=== PATIENT | female | born 1985 | race Caucasian/White ===

== ENCOUNTER 2016-11-14 14:49 | Emergency (ER) | payer OTHER ==
[~2016-11-14] VITALS: Ht 162.6 cm; Wt 122.7 kg
[~2016-11-14 14:49] MED LIST: EMTR1TAB12 PO; HYDR25TA4 PO; METF500T4 PO; RALT400T PO
[2016-11-14 15:07] VITALS: BP 188/132; PULSE 109; RESP 20; O2SAT 99
[2016-11-14 16:02] LABS: BASOPHILS % (AUTO) 0.1 % (0-3); EOSINOPHILS % (AUTO) 1.1 % (0-5); MONOCYTES % (AUTO) 7.4 % (4-12); Mean Corpuscular Hemoglobin 31.1 pg (27.0-35.0); Mean Corpuscular Volume 87.9 fL (81-100); NEUTROPHILS % (AUTO) 63.8 % (40-74); Platelet Count 280 bil/L (150-400)
[2016-11-14 18:30] VITALS: BP 158/78; PULSE 101; RESP 15; O2SAT 100
--- NOTE | 2016-11-14 18:49 | ED.REPORT ---
HPI-General Illness Date of Service Nov 14, 2016 ED Provider: Dr. Tijerina Pt is a 30 year old female with a history of substance abuse who presents to the ED from crisis respite with concerns for elevated blood pressure. She is requesting a refill of her hydrochlorothiazide medication. Pt reports that she did not get this medication refilled at her last visit to her PCP at [facility]. Pt states that she is having no other complaints. She denies any chest pain, SOB, new headaches, lateralizing weakness, nausea, vomiting or diarrhea. She states that she decided to come in because they said she needed her blood pressure controlled; not having any symptoms at this time. Nursing Notes Stated Complaint: ALCOHOL DETOX Chief Complaint: Substance Abuse Nursing Notes Reviewed: Yes Allergies: Coded Allergies: No Known Allergies (Verified Allergy, Unknown, 11/04/15) Scheduled Emtricitabine/Tenofovir 200-300mg (Truvada 200-300 mg) 1 Each Tablet 1 TABLET PO DAILY Emtricitabine/Tenofovir 200-300mg (Truvada 200-300 mg) 1 Each Tablet 1 TABLET PO DAILY Hydrochlorothiazide (Hydrochlorothiazide) 25 Mg Tablet 25 MG PO DAILY Hydrochlorothiazide (Hydrochlorothiazide) 25 Mg Tablet 25 MG PO DAILY Hydrochlorothiazide (Hydrochlorothiazide) 25 Mg Tablet 25 MG PO DAILY Hydrochlorothiazide (Hydrochlorothiazide) 25 Mg Tablet 25 MG PO DAILY Metformin (Metformin) 500 Mg Tablet 500 MG PO BID Metformin (Metformin) 500 Mg Tablet 500 MG PO BID Raltegravir Potassium (Isentress) 400 Mg Tablet 400 MG PO BID Raltegravir Potassium (Isentress) 400 Mg Tablet 400 MG PO BID General Time Seen by MD: 18:48 Chief Complaint Other (HTN meds refill) Hx Obtained From: Patient Arrived By: Walk-in Sudden in Onset?: No Onset Occurred: Onset unknown Symptom Duration: Since onset Severity: Current: No pain currently Severity: Maximum: No pain Similar Sx Previous: Yes Past Medical History Past Medical History Notes: Seen yesterday in ED for meth abuse - sent to [facility] Past Medical History Depression Substance abuse Reports: Diabetes mellitus, Hypertension Past Surgical History Reports: , Cholecystectomy Smoking History Current Every Day Smoker Social History Alcohol Use: >5 per day Drug Use: IV drugs, Meth, Other Other Social History: Lives with children, Local resident Occupation has a place to stay. no work or school at this time 11/01/2015 Ambulatory Status Independent Review of Systems Full Review of Systems Constitutional: Denies: Chills, Fever, Malaise, Weakness - generalized Respiratory: Denies: Non-productive cough, Shortness of breath, Wheezing Cardiovascular: Denies: Chest pain, Syncope GI: Denies: Constipation, Diarrhea, Nausea, Vomiting Female: Denies: Dysuria, Flank pain, Urinary frequency, Urinary urgency Musculoskeletal: Denies: Back pain, Extremity pain Skin: Denies Diaphoresis Neurologic: Denies: Change LOC, Dizziness, Headache, Syncope, Weakness Complete sys rev & neg: except as marked. Physical Exam Nursing note and vitals reviewed. Constitutional: Well-developed, well-nourished. Not diaphoretic. Head: Normocephalic and atraumatic. Mouth/Throat: Oropharynx is clear and moist. No oropharyngeal exudate. Eyes: EOM are normal. Pupils are equal, round, and reactive to light. Neck: Supple, no tracheal deviation. Cardiovascular: Normal rate, regular rhythm. Equal and intact distal pulses throughout. Pulmonary/Chest: Effort normal and breath sounds normal. No respiratory distress. Abdominal: Soft. No distension. There is no tenderness, rebound, or guarding. Bowel sounds preset. Musculoskeletal: Range of motion grossly intact, moving all extremities. No edema or tenderness appreciated Neurological: AOx3. Grossly nonfocal exam. Strength and sensation intact and equal to bilateral upper and lower extremities. Skin: Warm and dry, no rashes or pallor appreciated. Psychiatric: Appropriate mood and affect. Behavior appears normal. Vital Signs Vital Signs Date Time Temp Pulse Resp B/P Pulse Ox O2 Delivery O2 Flow Rate FiO2 11/14/16 20:49 36.9 84 14 156/78 98 Room Air 11/14/16 18:30 101 15 158/78 100 11/14/16 15:07 36.8 109 20 188/132 99 Initial VS: Reviewed Interpretation & Diagnostics Lab Results Interpretation Result Diagram: 11/14/16 1558 11/14/16 1558 Test 11/14/16 15:58 11/14/16 15:59 White Blood Count 14.1th/mm3 (3.8-10.1) Red Blood Count 4.89mil/mm3 (3.90-5.20) Hemoglobin 15.2g/dL (12.0-15.6) Hematocrit 43.0% (35.0-46.0) Mean Corpuscular Volume 87.9fL (81-100) Mean Corpuscular Hemoglobin 31.1pg (27.0-35.0) Mean Corpuscular Hemoglobin Concent 35.3% (32.0-37.0) Red Cell Distribution Width 13.3% (12.3-15.4) Platelet Count 280bil/L (150-400) Neutrophils (%) (Auto) 63.8% (40-74) Lymphocytes (%) (Auto) 27.4% (14-46) Monocytes (%) (Auto) 7.4% (4-12) Eosinophils (%) (Auto) 1.1% (0-5) Basophils (%) (Auto) 0.1% (0-3) Sodium Level 136mEq/L (134-144) Potassium Level 4.1mEq/L (3.5-5.2) Chloride Level 100mEq/L (97-108) Carbon Dioxide Level 22mmol/L (18-29) Blood Urea Nitrogen 24mg/dL (6-20) Creatinine 0.68mg/dL (0.57-1.00) Estimat Glomerular Filtration Rate 146mL/min (>59) Glucose Level 164mg/dL (60-99) Calcium Level 9.8mg/dL (8.5-10.1) Total Bilirubin 1.1mg/dL (0.0-1.2) Aspartate Amino Transf (AST/SGOT) 23U/L (0-50) Alanine Aminotransferase (ALT/SGPT) 22U/L (0-32) Alkaline Phosphatase 69U/L (25-150) Total Protein 7.3g/dL (6.4-8.4) Albumin 4.2g/dL (3.4-5.0) Hold Johns Top Tube Received (Received) Re-Eval/Medical Decision Med Decision/Clinical Course 30-year-old female history of substance abuse here from crisis respite after they noted that her blood pressure was high and stated that she needed to have this treated. She has no symptoms at this time whatsoever; she does not have a hypertensive urgency or emergency at this time. No complaints right now. Normal neurologic exam. I will give her a refill for her hydrochlorothiazide with instructions to follow-up with her PCP as soon as able. Plan discharge with careful return precautions, PCP follow-up. Source of Hx: Old records Time of Eval: 21:28 Re-Evaluation/Progress Note: Pt is rechecked and informed of her diagnosis and the plan to discharge her at this time. She understands and agrees, all questions are addressed. Counseled Regarding: Diagnosis, Lab results, Need for follow-up, When/why to return to ED Discharge & Departure Primary Impression: Medication refill Additional Impression: Hypertension Hypertension type: essential hypertension Qualified Code: I10 - Essential ( primary) hypertension Disposition: Home Discharge Condition All VS Reviewed: Yes Condition: Stable Patient Instructions: Chronic Hypertension (ED) Additional Instructions: Take your hypertension medication as prescribed, follow up with your primary care provider for continued care and future refills. Return to the emergency department with any chest pain, shortness of breath, or any other new or concerning symptoms. Referrals: [facility] (PCP) Kaity Attestation Portions of this note were transcribed by Mónica Munroe. I, Dr. Tijerina personally performed the history, physical exam and medical decision-making; I reviewed and confirmed the accuracy of the information in the transcribed note. Signed by: Kaity Mata, 11/14/2016 20:30 copies to: [facility] William B MD Nov 14, 2016 18:49 MONET MUNROE Nov 14, 2016 20:26
[2016-11-14] MEDS ORDERED: HYDR25TA4 PO (20:27)
[2016-11-14 20:49] VITALS: BP 156/78; PULSE 84; RESP 14; O2SAT 98
== END 2016-11-14 20:51 | disposition home or self-care (01) ==
LOC: SED 14:49
DX: I10 Essential (primary) hypertension (principal); F17.200 Nicotine dependence, unspecified, uncomplicated; F32.9 Major depressive disorder, single episode, unspecified; E11.9 Type 2 diabetes mellitus without complications; Z79.84 Long term (current) use of oral hypoglycemic drugs

== ENCOUNTER 2017-01-12 18:55 | Emergency (ER) | payer OTHER ==
[2017-01-12 19:00] VITALS: BP 139/92; PULSE 89; RESP 16; O2SAT 98
--- NOTE | 2017-01-12 19:04 | ED.REPORT ---
HPI-General Illness Date of Service Jan 12, 2017 ED Provider: Isai Cervantes MD Patient is a 31 year old female with a history of diabetes and polysubstance abuse who presents to the ED via EMS after the patient was found by [employer] on the street, intoxicated and tearful. Per EMS, the patient drank a fifth of tequila today and has used meth recently but denies using today. There is no history of head trauma or any acute injuries. There is no known history of suicidal ideation or statements recently. Here in the emergency department the patient is intoxicated, tearful and refusing to provide any history or participate in examination. Nursing Notes Stated Complaint: ETOH, MENTAL HEALTH EVAL Chief Complaint: Psychiatric Complaint Nursing Notes Reviewed: Yes Allergies: Coded Allergies: No Known Allergies (Verified Allergy, Unknown, 01/12/17) Scheduled Emtricitabine/Tenofovir 200-300mg (Truvada 200-300 mg) 1 Each Tablet 1 TABLET PO DAILY Emtricitabine/Tenofovir 200-300mg (Truvada 200-300 mg) 1 Each Tablet 1 TABLET PO DAILY Hydrochlorothiazide (Hydrochlorothiazide) 25 Mg Tablet 25 MG PO DAILY Hydrochlorothiazide (Hydrochlorothiazide) 25 Mg Tablet 25 MG PO DAILY Hydrochlorothiazide (Hydrochlorothiazide) 25 Mg Tablet 25 MG PO DAILY Hydrochlorothiazide (Hydrochlorothiazide) 25 Mg Tablet 25 MG PO DAILY Metformin (Metformin) 500 Mg Tablet 500 MG PO BID Metformin (Metformin) 500 Mg Tablet 500 MG PO BID Raltegravir Potassium (Isentress) 400 Mg Tablet 400 MG PO BID Raltegravir Potassium (Isentress) 400 Mg Tablet 400 MG PO BID General Time Seen by MD: 18:50 Chief Complaint Medical clearance Unable to Obtain Hx: Patient condition, Uncooperative, Intoxicated Arrived By: Ambulance Similar Sx Previous: Yes Past Medical History Past Medical History Depression Substance abuse Reports: Diabetes mellitus, Hypertension Past Surgical History Reports: , Cholecystectomy Smoking History Current Every Day Smoker Social History Alcohol Use: >5 per day Drug Use: IV drugs, Meth, Other Other Social History: Lives with children, Local resident Occupation has a place to stay. no work or school at this time 11/01/2015 Ambulatory Status Independent Review of Systems Unable to Obtain ROS Patient condition, Uncooperative Physical Exam limited exam due to patient's non participatory Vital Signs Vital Signs Date Time Temp Pulse Resp B/P Pulse Ox O2 Delivery O2 Flow Rate FiO2 01/12/17 19:00 89 16 139/92 98 Room Air Initial VS: Reviewed General/Constitutional: Awake, Alert Behavior: Positive: Tearful crying smells like alcohol Head / Eyes: Atraumatic, Normocephalic, PERRL, EOMI ENT: Atraumatic, Airway patent, Mucous membranes moist Neck: Atraumatic, Supple, Non-tender no midline tenderness no bony tenderness no step offs Respiratory / Chest: Atraumatic, No respiratory distress Abdomen: Atraumatic, Soft, Non-tender, No guarding, No rebound Upper Extremities Upper Extremity / MS: Atraumatic, Full range of motion Skin: Atraumatic, Color NL, No rash, Warm, Dry Interpretation & Diagnostics Lab Results Interpretation Result Diagram: 01/12/17191601/12/171916 Test 01/12/17 19:17 01/12/17 19:31 White Blood Count 12.8th/mm3 (3.8-10.1) Red Blood Count 4.71mil/mm3 (3.90-5.20) Hemoglobin 14.8g/dL (12.0-15.6) Hematocrit 40.6% (35.0-46.0) Mean Corpuscular Volume 86.2fL (81-100) Mean Corpuscular Hemoglobin 31.4pg (27.0-35.0) Mean Corpuscular Hemoglobin Concent 36.5% (32.0-37.0) Red Cell Distribution Width 12.6% (12.3-15.4) Platelet Count 275bil/L (150-400) Neutrophils (%) (Auto) 66.8% (40-74) Lymphocytes (%) (Auto) 25.7% (14-46) Monocytes (%) (Auto) 6.3% (4-12) Eosinophils (%) (Auto) 0.8% (0-5) Basophils (%) (Auto) 0.2% (0-3) Sodium Level 141mEq/L (134-144) Potassium Level 3.4mEq/L (3.5-5.2) Chloride Level 107mEq/L (97-108) Carbon Dioxide Level 17mmol/L (18-29) Blood Urea Nitrogen 18mg/dL (6-20) Creatinine 0.82mg/dL (0.57-1.00) Estimat Glomerular Filtration Rate 116mL/min (>59) Glucose Level 185mg/dL (60-99) Calcium Level 8.6mg/dL (8.5-10.1) Total Bilirubin 0.6mg/dL (0.0-1.2) Aspartate Amino Transf (AST/SGOT) 14U/L (0-50) Alanine Aminotransferase (ALT/SGPT) 18U/L (0-32) Alkaline Phosphatase 75U/L (25-150) Total Protein 6.6g/dL (6.4-8.4) Albumin 3.7g/dL (3.4-5.0) Thyroid Stimulating Hormone (TSH) 1.070uIU/mL (0.450-4.500) Human Chorionic Gonadotropin, Qual Negative (Negative) Hold Johns Top Tube Received (Received) Alcohols 270mg/dL (0-10) Hold Urine Received (Received) Re-Eval/Medical Decision Med Decision/Clinical Course Patient is a 31 year old female with a history of diabetes and polysubstance abuse who presents to the ED via EMS after the patient was found by [employer] on the street, intoxicated and tearful. Per EMS, the patient drank a fifth of tequila today and has used meth recently but denies using today. There is no history of head trauma or any acute injuries. There is no known history of suicidal ideation or statements recently. Here in the emergency department the patient is intoxicated, tearful and refusing to provide any history or participate in examination. The patient is hemodynamically stable and afebrile. Full head to toe examination reveals no signs of trauma. She smells like alcohol. Laboratory studies notable as below: Urinalysis demonstrated no sign of UTI tox screen positive for meth Blood alcohol 270 CBC unremarkable except for mild leukoytosis CMP unremarkable Patient is quite agitated, tearful and intoxicated on alcohol. The patient may also be affected by methamphetamine as well. I see no signs of head trauma and there is no history of head trauma. I do not feel that CT imaging of her brain is immediately indicated as her neurologic examination is completely nonfocal, there is no history of seizure and she is not on blood thinners. At this time the patient is too intoxicated to assess why she is crying. There is no known toxic ingestion and no history suggestive thereof. She remained stable at this time. She has been signed out to Dr. Cervantes in stable condition. Discharge & Departure Primary Impression: Alcohol abuse Additional Impressions: Methamphetamine abuse Agitation Discharge Condition All VS Reviewed: Yes Condition: Stable Referrals: [facility] (PCP) Kaity Attestation Portions of this note were transcribed by Aundrea Garcia. I, Dr. Cervantes personally performed the history, physical exam and medical decision-making; I reviewed and confirmed the accuracy of the information in the transcribed note. Signed by: Kaity Worley, 01/12/17 Isai Cervantes MD Jan 12, 2017 19:04 Eli Garcia Jan 12, 2017 19:10
[2017-01-12 19:25] LABS: BASOPHILS % (AUTO) 0.2 % (0-3); EOSINOPHILS % (AUTO) 0.8 % (0-5); MONOCYTES % (AUTO) 6.3 % (4-12); Mean Corpuscular Hemoglobin 31.4 pg (27.0-35.0); Mean Corpuscular Volume 86.2 fL (81-100); NEUTROPHILS % (AUTO) 66.8 % (40-74); Platelet Count 275 bil/L (150-400)
[2017-01-12 23:14] VITALS: BP 118/78; PULSE 87; RESP 16; O2SAT 100
[2017-01-13 04:12] VITALS: BP 143/90; PULSE 96; RESP 23; O2SAT 99
--- NOTE | 2017-01-13 08:33 | DRSVH ---
PROCEDURE: X-RAY RIGHT HAND, MINIMUM THREE VIEWS ([id number]) INDICATIONS: hand trauma TECHNIQUE: 3 views of the hand(s) acquired. COMPARISON: None. FINDINGS: Bones: No fractures or dislocations. Carpal bones are normally aligned. No suspicious bony lesions . Soft tissues: No suspicious soft tissue calcifications. IMPRESSION: No acute fractures or dislocations. Dictated by: Stanley Mora M.D. on 01/13/2017 at 8:30 Approved by: Stanley Mora M.D. on 01/13/2017 at 8:31
--- NOTE | 2017-01-13 08:34 | DRSVH ---
PROCEDURE: X-RAY LEFT HAND, MINIMUM THREE VIEWS ([id number]) INDICATIONS: hand trauma TECHNIQUE: 3 views of the hand(s) acquired. COMPARISON: None. FINDINGS: Bones: No fractures or dislocations. Carpal bones are normally aligned. No suspicious bony lesions . Soft tissues: No suspicious soft tissue calcifications. IMPRESSION: No acute fractures or dislocations. Dictated by: Stanley Mora M.D. on 01/13/2017 at 8:31 Approved by: Stanley Mora M.D. on 01/13/2017 at 8:32
[2017-01-13 09:06] VITALS: BP 110/78; PULSE 99; O2SAT 98
--- NOTE | 2017-01-13 17:42 | NUR ---
[facility] [place]: Mental Health Evaluation Reason for Visit: Leticia Corona is a 31 year old female who was brought in by [employer] after being found down in a parking lot intoxicated. Pt had identified that she was wanting to kill herself. order received to evaluate pt and to offer resources. Current Situation: Pt explained she is feeling confused this morning. Pt does not remember what happened the night before. Pt only remembers her car being at [employer] and she had trouble with her car. In response to her frustrations, she purchased and then drunk 1/5 of Tequila. Pt denies any current suicidal ideation. Pt denies any homicidal ideation or thoughts of harming herself or others. Pt states she is feeling better after sleeping her last night and sobering up. Current Mental Status/ADLs: Pt is a 31 year old female who is cooperative for this assessment. Pt is alert and oriented to person, place and situation. Pt appears disheveled from sleeping and is overweight. Pt mood is angry if they towed my car. Pt affect is normal. Pt speech is normal in rate and volume. Pt appropriate in behavior during this assessment. Pt denies any changes in her sleep or appetite. Pt denies any homicidal ideation or thoughts of harming herself or others. Pt does endorse hearing and seeing ghosts at baseline who have sometimes told her to harm herself, never others. But pt states I just tell them to shut the fuck up, I wish they were real people so I could throat punch them. Pt states she ignores them. Pt does not appear to be responding to any internal stimuli at this time. Psychiatric Hx/Tx: MIS Check completed with the [facility]. Per [facility], pt was discharged from services in 10/03/2016. They do not have record of any hospitalizations. Pt does identify a past suicide attempt last year when she overdosed on medications that she purchased from the grocery store and woke up in the hospital. Pt Is glad that she was not successful. Diagnosis: Per JENNIFER, F33.0 Legal Hx/Assault/Violence: Pt does have a court date for this Monday01/07/2017 for a theft charge. Pt did identify she has trouble controlling her anger, but does not identify her anger resulting in assaultive behaviors or legal issues. Chemical Dependency: Denies. Pt positive for meth and amphetamines. Pt BAL was .201 on arrival. Pt states she was recently at [facility] inpt drug tx for one month and was released a couple weeks ago. Pt states this is why she was discharged from [facility] in September. Pt states that drug tx was helpful for her but they set me up for failure by not paying for a taxi for her to get home and she was tempted by the drugs sold on the streets. Pt denies any current interest in drug tx as she has a court date next week and she is anticipating having to serve penitentiary time. Disposition/Plan: Pt denies any current suicidal ideation or homicidal ideation or thoughts of harming herself or others. Pt current symptoms she experiences at baseline and identifies that her behaviors last night were influenced by her being black out drunk. Pt is not gravely disabled. Pt does not meet criteria for inpt hospitalization and participated in safety planning. Pt is future oriented and is looking forward to her visitation with her children tomorrow morning and wants to make sure she makes it to her court date on Monday in order to avoid more warrants for her arrest. Pt is interested in being re-established with mental health follow up and to get on a waitlist to see a prescriber if her outpt counselor believes that would be helpful. CLUB DIRECTOR contacted the [facility] who stated they only do next day follow up appointments no longer than 24 hours in advance. Pt was advised to contact the crisis line on Monday for a next day follow up appointment for Monday01/16/2017. Pt was also provided Walk in information for both [facility] and [facility] services per pt request so she can get established that way if she does not go to penitentiary. Pt provided with Crisis line number and community resource information. Pt provided with bus pass so she could go get her car from [employer]. Pt denies any other needs at this time. Pt feels safe to discharge today. updated and in agreement with this plan. Pt encouraged to present back to the ED if she begins to feel unsafe or experiences suicidal ideation again. COLIN Almaguer
== END 2017-01-13 13:09 | disposition home or self-care (01) ==
LOC: SED 18:55
DX: F10.129 Alcohol abuse with intoxication, unspecified (principal); Y90.7 Blood alcohol level of 200-239 mg/100 ml; F15.10 Other stimulant abuse, uncomplicated; R45.1 Restlessness and agitation; R44.0 Auditory hallucinations; R45.851 Suicidal ideations; F19.10 Other psychoactive substance abuse, uncomplicated; I10 Essential (primary) hypertension; E11.9 Type 2 diabetes mellitus without complications; F32.9 Major depressive disorder, single episode, unspecified; F17.200 Nicotine dependence, unspecified, uncomplicated; Z90.49 Acquired absence of other specified parts of digestive tract; Z79.84 Long term (current) use of oral hypoglycemic drugs
CPT/HCPCS: 36415; 73130; 80053; 81002; 81025; 82075; 84443; 84703; 85025; 99284; G0480